=== PATIENT | male | born 1995 | race Caucasian/White ===

== ENCOUNTER 2022-08-11 20:38 | Emergency (ER) | payer BC ==
[2022-08-11] MEDS: Ketorolac 30 MG/ML SDV IM ONE (21:00)
== END 2022-08-11 21:39 | disposition home or self-care (01) ==
LOC: LL.ED 20:38
DX: S83.92XA Sprain of unspecified site of left knee, initial encounter (principal); W17.89XA Other fall from one level to another, initial encounter
CPT/HCPCS: 73562-50; 96372; 99283; J1885

== ENCOUNTER 2023-02-14 05:18 | Observation (INO) | payer BC ==
[2023-02-14] MEDS ORDERED: Ondansetron 4 MG/2 ML SDV IVPUSH ONE (06:06)
[2023-02-14] MEDS ORDERED: Morphine 2 MG/ML SYRINGE IVPUSH ONE (06:06)
[2023-02-14] MEDS ORDERED: Nicotine 21 MG/24 Hr Patch TRDERM ONE (06:07)
[2023-02-14] MEDS ORDERED: Diphtheria,Pertussis(Acell),Tetanus Vaccine 0.5 ML Syringe IM ONE (06:08)
[2023-02-14] MEDS ORDERED: Acetaminophen 325 MG Tab PO PRN (06:22)
[2023-02-14] MEDS ORDERED: Morphine 2 MG/ML SYRINGE SUBCUT PRN (06:24)
[2023-02-14] MEDS ORDERED: Ondansetron 4 MG/2 ML SDV IVPUSH PRN (06:25)
[2023-02-14] MEDS ORDERED: hydrOXYzine Pamoate 25 MG Cap PO PRN (06:32)
[2023-02-14] MEDS: Sodium Chloride 0.9% 1,000 ML IV SCH ×2 (06:47→17:48)
[2023-02-14] MEDS: Ketorolac 15 MG/ML SDV IVPUSH SCH ×3 (06:48→19:33)
[2023-02-14] MEDS ORDERED: BUSPIRONE 5 MG PO SCH (08:00)
[2023-02-14 08:21] LABS: BASOPHILS ABSOLUTE AUTO 0.01 K/uL (0.00-0.20); BASOPHILS PERCENT AUTO 0.1 % (0.0-2.0); EOSINOPHILS ABSOLUTE AUTO 0.05 K/uL (0.00-0.50); EOSINOPHILS PERCENT AUTO 0.4 % (0.0-5.0); HEMATOCRIT 43.2 % (39.0-49.0); HEMOGLOBIN 14.3 g/dL (13.1-16.8); LYMPHOCYTES ABSOLUTE AUTO 1.85 K/uL (0.50-3.50); LYMPHOCYTES PERCENT AUTO 14.9 % (10.0-50.0); MEAN CORPUSCULAR HEMOGLOBIN 30.2 pg (28.2-33.3); MEAN CORPUSCULAR HGB CONC 33.1 g/dL (31.7-36.0); MEAN CORPUSCULAR VOLUME 91.1 fL (84.0-98.0); MONOCYTES ABSOLUTE AUTO 0.83 K/uL (0.00-1.00); MONOCYTES PERCENT AUTO 6.7 % (2.0-14.0); NEUTROPHILS ABSOLUTE AUTO 9.69 K/uL (1.40-7.00); NEUTROPHILS PERCENT AUTO 77.9 % (45.0-80.0); PLATELET COUNT,PLT 231 K/uL (150-350); RED BLOOD CELL COUNT 4.74 M/uL (4.33-5.41); RED CELL DISTRIBUTION WIDTH 13.4 % (11.2-14.1); WHITE BLOOD CELL COUNT,WBC 12.4 K/uL (4.0-10.2)
[2023-02-14] MEDS: oxyCODONE 5 MG Tab PO PRN ×2 (08:36→13:19)
[2023-02-14 08:42] LABS: ANION GAP 12.8 meq/L (7-15); CARBON DIOXIDE,CO2 23.2 mmol/L (21.0-32.0); POTASSIUM,K 4.7 mmol/L (3.5-5.1)
[2023-02-14 09:42] LABS: BILIRUBIN TOTAL 0.3 mg/dL (0.2-1.0); CREATININE 1.24 mg/dL (0.51-1.17); EST CRCL DRUG DOSING (CG) 99.09 mL/min; PROTEIN TOTAL,TP 7.2 g/dL (6.4-8.2)
[2023-02-14] MEDS ORDERED: Escitalopram 20 MG Tab PO SCH (20:00)
[2023-02-15] MEDS: Ketorolac 15 MG/ML SDV IVPUSH SCH (00:24)
[2023-02-15] MEDS ORDERED: Sodium Chloride 0.9% 10 ML Syringe FLUSH PRN (00:28)
[2023-02-15] MEDS ORDERED: Morphine 2 MG/ML SYRINGE IVPUSH PRN (01:50)
[2023-02-15] MEDS: Sodium Chloride 0.9% 1,000 ML IV SCH (03:37)
[2023-02-15 05:39] LABS: BASOPHILS ABSOLUTE AUTO 0.02 K/uL (0.00-0.20); BASOPHILS PERCENT AUTO 0.3 % (0.0-2.0); EOSINOPHILS PERCENT AUTO 1.6 % (0.0-5.0); HEMATOCRIT 39.1 % (39.0-49.0); LYMPHOCYTES ABSOLUTE AUTO 2.09 K/uL (0.50-3.50); LYMPHOCYTES PERCENT AUTO 34.1 % (10.0-50.0); MEAN CORPUSCULAR HEMOGLOBIN 30.3 pg (28.2-33.3); MEAN CORPUSCULAR HGB CONC 33.2 g/dL (31.7-36.0); MEAN CORPUSCULAR VOLUME 91.1 fL (84.0-98.0); MONOCYTES PERCENT AUTO 9.8 % (2.0-14.0); NEUTROPHILS ABSOLUTE AUTO 3.32 K/uL (1.40-7.00); NEUTROPHILS PERCENT AUTO 54.2 % (45.0-80.0); PLATELET COUNT,PLT 242 K/uL (150-350); RED BLOOD CELL COUNT 4.29 M/uL (4.33-5.41); RED CELL DISTRIBUTION WIDTH 13.3 % (11.2-14.1); WHITE BLOOD CELL COUNT,WBC 6.1 K/uL (4.0-10.2)
[2023-02-15 06:11] LABS: ANION GAP 5.2 meq/L (7-15); CALCIUM 8.7 mg/dL (8.5-10.1); CARBON DIOXIDE,CO2 30.8 mmol/L (21.0-32.0); CREATININE 1.08 mg/dL (0.51-1.17); EST CRCL DRUG DOSING (CG) 113.77 mL/min; POTASSIUM,K 4.4 mmol/L (3.5-5.1)
== END 2023-02-15 05:37 | disposition home or self-care (01) ==
LOC: LL.ED 05:18 → LL.MS 06:00
PROVIDERS: ADMIT Emergency Medicine; ATTEND Emergency Medicine
DX: S57.02XA Crushing injury of left elbow, initial encounter (principal); F41.9 Anxiety disorder, unspecified; F32.A Depression, unspecified; F17.210 Nicotine dependence, cigarettes, uncomplicated; Z79.899 Other long term (current) drug therapy; W23.1XXA Caught, crushed, jammed, or pinched between stationary objects, initial encounter
CPT/HCPCS: 36415; 73080-LT; 80048; 80053; 82550; 85025; 90715; A9270-GY; J1885; J2270; J2405; J7030

== ENCOUNTER 2024-01-06 23:53 | Emergency (ER) | payer BC ==
[2024-01-07] MEDS: Meclizine 25 MG Tab PO ONE (00:47)
[2024-01-07] MEDS: Ondansetron 4 MG Tab.DIS PO ONE (00:47)
[2024-01-07 01:03] LABS: BASOPHILS ABSOLUTE AUTO 0.01 K/uL (0.00-0.20); BASOPHILS PERCENT AUTO 0.1 % (0.0-2.0); EOSINOPHILS ABSOLUTE AUTO 0.03 K/uL (0.00-0.50); EOSINOPHILS PERCENT AUTO 0.3 % (0.0-5.0); HEMATOCRIT 43.1 % (39.0-49.0); HEMOGLOBIN 14.5 g/dL (13.1-16.8); LYMPHOCYTES ABSOLUTE AUTO 1.16 K/uL (0.50-3.50); LYMPHOCYTES PERCENT AUTO 12.1 % (10.0-50.0); MEAN CORPUSCULAR HGB CONC 33.6 g/dL (31.7-36.0); MEAN CORPUSCULAR VOLUME 89.2 fL (84.0-98.0); MONOCYTES ABSOLUTE AUTO 0.67 K/uL (0.00-1.00); NEUTROPHILS ABSOLUTE AUTO 7.69 K/uL (1.40-7.00); NEUTROPHILS PERCENT AUTO 80.5 % (45.0-80.0); PLATELET COUNT,PLT 256 K/uL (150-350); RED BLOOD CELL COUNT 4.83 M/uL (4.33-5.41); RED CELL DISTRIBUTION WIDTH 13.2 % (11.2-14.1); WHITE BLOOD CELL COUNT,WBC 9.6 K/uL (4.0-10.2)
[2024-01-07 01:33] LABS: ALANINE AMINOTRANSFERASE,ALT 29 U/L (12-78); ALKALINE PHOSPHATASE 20 IU/L (46-116); ANION GAP 7.7 meq/L (7-15); ASPARTATE AMNIOTRANSFERASE,AST 15 U/L (15-37); BILIRUBIN TOTAL 0.4 mg/dL (0.2-1.0); BLOOD UREA NITROGEN,BUN 13 mg/dL (7-18); CALCIUM 8.8 mg/dL (8.5-10.1); CARBON DIOXIDE,CO2 30.3 mmol/L (21.0-32.0); CHLORIDE,CL 106 mmol/L (98-107); CREATININE 1.26 mg/dL (0.51-1.17); ESTIMATED GFR 80 mL/min (>=60); GLUCOSE RANDOM 125 mg/dL (70-99); POTASSIUM,K 3.6 mmol/L (3.5-5.1); PROTEIN TOTAL,TP 7.4 g/dL (6.4-8.2); SODIUM,NA 144 mmol/L (136-145)
[2024-01-07] MEDS ORDERED: Sodium Chloride 0.9% 10 ML Syringe FLUSH PRN (01:36)
[2024-01-07] MEDS ORDERED: Take Home: Meclizine HCl 25 MG, 6 Tab Pack ONE (01:36)
[2024-01-07] MEDS: Take Home: Ondansetron 4 MG Tab.DIS, 5 Tab Pack PO ONE (01:38)
[2024-01-07] MEDS: Take Home: Meclizine HCl 25 MG, 6 Tab Pack PO ONE (01:38)
[2024-01-07] MEDS: Sodium Chloride 0.9% 1,000 ML IV ONE (01:39)
== END 2024-01-07 02:59 | disposition home or self-care (01) ==
LOC: LL.ED 23:53
DX: B34.9 Viral infection, unspecified (principal); Z79.899 Other long term (current) drug therapy
CPT/HCPCS: 36415; 80053; 85025; 96360; 99284-25; A9270-GY; J7030; Q0162; U0002